=== PATIENT | female | born 1965 | race Caucasian/White ===

== ENCOUNTER 2018-04-18 19:19 | Emergency (ER) | payer OTHER ==
[2018-04-18] MEDS ORDERED: Tetracaine 0.5% OPTH.SOL 4 ML* 1 DROP BTL ONE (20:30)
[2018-04-18] MEDS ORDERED: Fluorescein Sod TOPICAL 0.6* 0.6 MG TEST OPHTHALMIC ONE (20:30)
[2018-04-18] MEDS ORDERED: Polymyx/Trimethoprim OPTH* 10 ML BTL RIGHT EYE ONE (21:07)
--- NOTE | 2018-04-18 21:09 | ED ---
Throat Pain/Nasal Congestion - HPI Summary HPI Summary: 52 year female presents with right eye erythema today. States she went for a walk and she pet some cats and she may have gotten something into her eye. She states that she never had allergic reaction to cats before. She denies any sinus congestion. She said feels like her right eye is itchy. Unsure if anything stuck in her eye. No change in vision. Does not wear glasses or contacts. She did flush the area with minimal relief. - History of Current Complaint Chief Complaint: EDEyeProblem Time Seen by Provider: 04/18/18 19:55 - Allergies/Home Medications Allergies/Adverse Reactions: Allergies Allergy/AdvReac Type Severity Reaction Status Date / Time No Known Allergies Allergy Verified 04/18/18 19:32 Home Medications: Home Medications NK [No Home Medications Reported] 04/18/18 [History Confirmed 04/18/18] PMH/Surg Hx/FS Hx/Imm Hx Endocrine/Hematology History: Denies: Hx Anticoagulant Therapy Cardiovascular History: Denies: Hx Myocardial Infarction - Cancer History Hx Chemotherapy: No Hx Radiation Therapy: No Infectious Disease History: No Infectious Disease History: Denies: Traveled Outside the [place] in Last 30 Days - Family History Known Family History: Negative: Diabetes - Social History Alcohol Use: Occasionally Substance Use Type: Reports: None Smoking Status (MU): Never Smoked Tobacco Review of Systems Negative: Fever Positive: Erythema Negative: Chest Pain Negative: Shortness Of Breath All Other Systems Reviewed And Are Negative: Yes Physical Exam Triage Information Reviewed: Yes Vital Signs On Initial Exam: Initial Vitals Temp Pulse Resp BP Pulse Ox 99.0 F 78 16 134/60 97 04/18/18 19:29 04/18/18 19:29 04/18/18 19:29 04/18/18 19:29 04/18/18 19:29 Vital Signs Reviewed: Yes Appearance: Positive: Well-Appearing Skin: Positive: Warm, Dry Head/Face: Positive: Normal Head/Face Inspection Eyes: Positive: Normal, EOMI, TIMUR, Conjunctiva Inflammed, Other: - no foreign body seen, no uptake on fluorescein exam. Negative: Discharge ENT: Positive: Pharynx normal Respiratory/Lung Sounds: Positive: Clear to Auscultation, Breath Sounds Present Cardiovascular: Positive: Normal, RRR Musculoskeletal: Positive: Normal Neurological: Positive: Normal Psychiatric: Positive: Normal Procedures - Eye Procedure Right Alcaine Drops Administered: Yes - no uptake on fluorscein exam Diagnostics - Vital Signs Vital Signs Temp Pulse Resp BP Pulse Ox 04/18/18 19:29 99.0 F 78 16 134/60 97 - Laboratory Lab Statement: Any lab studies that have been ordered have been reviewed, and results considered in the medical decision making process. EENT Course/Dx - Course Course Of Treatment: 52 year female presents with right eye erythema today. States she went for a walk and she pet some cats and she may have gotten something into her eye. She states that she never had allergic reaction to cats before. She denies any sinus congestion. She said feels like her right eye is itchy. Unsure if anything stuck in her eye. No change in vision. Does not wear glasses or contacts. She did flush the area with minimal relief. on exam has erythema to right eye. no uptake on fluorscein exam. area was irrigated with eye wash. may be foreign body vs allergic reaction. will give zytrec and polytrim. told to follow up with optho if no improvement. patient understand and agrees with plan. - Differential Diagnoses Differential Diagnoses: Conjunctivitis, Corneal Abrasion, Foreign Body - Diagnoses Provider Diagnoses: Redness of right eye Discharge - Sign-Out/Discharge Documenting (check all that apply): Patient Departure - Discharge Plan Condition: Good Disposition: HOME Referrals: Noe Jordan MD [Primary Care Provider] - Connor Cates MD [Medical Doctor] - Additional Instructions: Place 1 drop in eye 4 times a day for 5 days take antihistamine such as zytrec once a day Use artificial tears or saline to rinse eye for symptomatic relief Take Tylenol or ibuprofen for pain Follow up with ophthalmology if no improvement in 5 days Return to ED if develop any new or worsening symptoms - Billing Disposition and Condition Condition: GOOD Disposition: Home
[2018-04-18 21:27] VITALS: BP 122/63
[2018-04-18] MEDS ORDERED: Cetirizine* 10 MG TAB PO ONE (22:00)
== END 2018-04-18 21:26 | disposition home or self-care (01) ==
LOC: ED 19:19
DX: H57.8 Other specified disorders of eye and adnexa (principal); L53.9 Erythematous condition, unspecified
CPT/HCPCS: 99282; A9270-GY